=== PATIENT | male | born 1980 | race Caucasian/White ===

== ENCOUNTER 2017-10-10 04:28 | Emergency (ER) | payer MEDICAID ==
[~2017-10-10] VITALS: Ht 162.6 cm; Wt 63.5 kg
[2017-10-10 05:05] VITALS: BP 123/90
== END 2017-10-10 07:05 | disposition home or self-care (01) ==
LOC: ER 04:37
DX: S01.01XA Laceration without foreign body of scalp, initial encounter (principal); S09.90XA Unspecified injury of head, initial encounter; M19.90 Unspecified osteoarthritis, unspecified site; Z88.8 Allergy status to other drugs, medicaments and biological substances; Z91.011 Allergy to milk products; Z91.012 Allergy to eggs; Y08.89XA Assault by other specified means, initial encounter; Y93.89 Activity, other specified; Y99.8 Other external cause status; Y92.89 Other specified places as the place of occurrence of the external cause
CPT/HCPCS: 12001; 70450

== ENCOUNTER 2017-10-21 14:46 | Emergency (ER) | payer MEDICAID ==
[~2017-10-21] VITALS: Ht 162.6 cm; Wt 63.5 kg
[2017-10-21 15:21] VITALS: BP 121/86
== END 2017-10-21 16:03 | disposition home or self-care (01) ==
LOC: ER 14:49
DX: S01.01XD Laceration without foreign body of scalp, subsequent encounter (principal); Z48.02 Encounter for removal of sutures; Z88.8 Allergy status to other drugs, medicaments and biological substances; X58.XXXD Exposure to other specified factors, subsequent encounter

== ENCOUNTER → 2021-01-30 | Emergency (ER) | payer MEDICAID ==
[~2021-01-30] VITALS: Ht 162.6 cm; Wt 65.8 kg
[~2021-01-30] MED LIST: ACETAMINOPHEN/CODEINE#3 (300/30mg) TAB PO ONE; HYDROmorphone HCL 2 MG/ML VL IV ONE; ONDANSETRON HCL 4 MG/2 ML VIAL IV ONE
[2021-01-30 17:35] VITALS: BP 133/96
== END | disposition home or self-care (01) ==
LOC: ER 12:52
DX: S92.251A Displaced fracture of navicular [scaphoid] of right foot, initial encounter for closed fracture (principal); S42.201A Unspecified fracture of upper end of right humerus, initial encounter for closed fracture; S12.200A Unspecified displaced fracture of third cervical vertebra, initial encounter for closed fracture; R51.9 Headache, unspecified; V43.52XA Car driver injured in collision with other type car in traffic accident, initial encounter; Y93.55 Activity, bike riding; Y92.488 Other paved roadways as the place of occurrence of the external cause; Y99.8 Other external cause status
CPT/HCPCS: 29125; 70450; 72125; 73030; 73090; 73200; 96374; 96375; 99285; J1170; J2405

== ENCOUNTER 2021-03-08 00:20 | Emergency (ER) | payer MEDICAID ==
[~2021-03-08] VITALS: Ht 170.2 cm; Wt 68.0 kg
[2021-03-08] MEDS ORDERED: SODIUM CHLORIDE 0.9% 1,000 ML IV ONE (01:15)
[2021-03-08 01:40] VITALS: BP 135/86
[2021-03-08 02:20] LABS: Basophils # (auto) 0.1 10 ^3/uL (0-0.2); Basophils % (auto) 1.2 % (0.0-2.0); Eosinophils # (auto) 0.4 10 ^3/uL (0-0.8); Eosinophils % (auto) 3.5 % (0.0-7.0); Hematocrit 37.2 % (41.0-53.0); Hemoglobin 13.1 g/dL (13.5-17.5); Lymphocytes # (auto) 2.4 10 ^3/uL (0.4-5.4); Lymphocytes % (auto) 20.7 % (10.0-50.0); Mean Corpuscular Hemoglobin 34.3 pg (28.0-32.0); Mean Corpuscular Hgb Conc. 35.2 g/dL (32.0-36.0); Mean Corpuscular Volume 97.5 fL (80.0-100.0); Monocytes # (auto) 0.7 10 ^3/uL (0-1.3); Monocytes % (auto) 5.8 % (0.0-12.0); Neutrophils % (auto) 68.8 % (37.0-80.0); Red Blood Cells 3.81 10^6/uL (4.5-5.90); White Blood Cell 11.6 10^3/uL (4.4-10.8)
[2021-03-08 02:37] LABS: Albumin 2.9 g/dL (3.4-5.0); BUN/Creatinine Ratio 12.6; Calcium 7.4 mg/dL (8.5-10.1); Potassium 4.1 mmol/L (3.5-5.1)
[2021-03-08 02:40] LABS: Bilirubin, Total 0.3 mg/dL (0.2-1.0); Total Protein 5.8 g/dL (6.4-8.2)
== END 2021-03-08 03:48 | disposition home or self-care (01) ==
LOC: ER 00:20 → EDBD 00:20 → ER 03:48
DX: R55 Syncope and collapse (principal); F10.10 Alcohol abuse, uncomplicated; F17.210 Nicotine dependence, cigarettes, uncomplicated; Z91.012 Allergy to eggs; Z91.011 Allergy to milk products; Y90.9 Presence of alcohol in blood, level not specified
CPT/HCPCS: 36415; 80053; 85025; 93005; 96360; 99284; J7030